=== PATIENT | male | born 1945 | race Caucasian/White ===

== ENCOUNTER 2017-01-25 09:32 | Inpatient (IN) | payer MEDICARE, OTHER ==
[2017-01-22 12:39] LABS: WBC (NOT ORDERED) (RFLEX) 0 (0-5)
[2017-01-22 13:19] LABS: BASOPHILS 0.2 %; BASOPHILS ABSOLUTE 0.02 10/3/uL (0.0-0.16); EOSINOPHILS 1.1 %; HEMATOCRIT 45.2 % (40.0-51.0); HEMOGLOBIN 14.7 g/dL (13.6-17.8); IMMATURE GRANULOCYTES 0.2 %; IMMATURE GRANULOCYTES ABSOLUTE 0.02 10/3/uL (0.0-0.11); LYMPHOCYTES 16.2 %; LYMPHOCYTES ABSOLUTE 1.41 10/3/uL (0.67-4.30); MEAN CORPUS HGB CONC 32.5 g/dL (32.0-36.0); MEAN CORPUSCULAR HEMOGLOB 28.5 pg (26.0-34.0); MEAN PLATELET VOLUME 10.6 fL (9.2-13.0); MONOCYTES 8.4 %; MONOCYTES ABSOLUTE 0.73 10/3/uL (0.21-1.20); NEUTROPHILS 73.9 %; NEUTROPHILS ABSOLUTE 6.44 10/3/uL (2.02-8.40); PLATELET COUNT 282 10/3/uL (150-400); RBC DISTRIBUTION WIDTH 13.7 % (12.0-16.0); RED CELL COUNT 5.15 10/6/uL (4.7-6.1); WHITE BLOOD CELLS 8.7 10/3/uL (4.5-10.5)
[2017-01-22 13:20] LABS: MANUAL DIFF NO %; MEAN CORPUSCULAR VOLUME 87.8 fL (80-100)
[2017-01-22 13:33] LABS: BUN (BLOOD UREA NITROGEN) 13 MG/DL (6-23); CALCIUM, SERUM 8.9 MG/DL (8.5-10.4); CHLORIDE, SERUM 101 MMOL/L (96-112); CO2 (CARBON DIOXIDE) 29 MMOL/L (24-34); CREATININE 1.15 MG/DL (0.70-1.30); GFR AFRICAN AMERICAN 74 ML/MIN (>=60); GFR NON AFRICAN AMERICAN 64 ML/MIN (>=60); GLUCOSE, SERUM 171 MG/DL (60-99); POTASSIUM, SERUM 4.7 MMOL/L (3.5-5.3); SODIUM, SERUM 140 MMOL/L (135-148)
[2017-01-22 13:44] LABS: PFA (COL/EPI) 129 SEC (72-180)
[2017-01-22 13:54] LABS: PARTIAL THROMBO TIME 31.8 SEC (22.5-37.2)
[2017-01-22 14:35] LABS: ASCORBIC ACID (UR NOT ORDER) NEG (NEG); BILIRUBIN, URINE NEGATIVE (NEG); KETONE, URINE NEGATIVE (NEG); LEUKOCYTE ESTERASE(NOT OR NEG (NEG)
--- NOTE | ~2017-01-25 | DS ---
Discharge Summary [facility] [address] [facility] [place]. [address] NAME: MARY JO CALDERON : 45 STATUS : DIS IN PAT#: [id number] AGE: 71 ADM/REG DATE : 01/25/17 MR#: [id number] REPORT SERV DATE: 02/03/17 DICTATED BY: NEIL LEVINE DATE: 02/02/17 REPORT STATUS : Draft TRANSCRIBED BY: LYUDMILA DATE: 02/02/17 Data Collection from hospitalization DISCHARGE DIAGNOSES: 1. Thrombosed left femoral popliteal bypass. 2. Peripheral vascular disease. 3. History of coronary artery disease. 4. 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 CONSULTATIONS: None. PROCEDURES PERFORMED: Revision of left femoral popliteal bypass to left femoral to posterior tibial artery bypass with composite segment from the knee distal reversed left distal greater saphenous vein to posterior tibial artery, 01/25/2017. MEDICATIONS: Coreg 3.125 mg twice daily, Valium 5 mg daily, Imdur 30 mg every morning, Nitrostat 0.4 mg sublingually as needed, Wautoma 10/325 one every 4 hours as needed, Fioricet 1 every 8 hours as needed, and Eliquis 5 mg twice daily. CONDITION AT DISCHARGE: Upon discharge, he did appear to be doing well and had no complaints. DISPOSITION: He had been discharged home to continue a 4-g sodium, low cholesterol, cardiac diet with activity as tolerated. He was to follow up with me in the office in 2 to 4 weeks. HOSPITAL COURSE: This 71-year-old male presented with short distance claudication symptoms and symptoms of rest pain in the ball of the foot and toes that had been persistent for the last few months. Recommendations were made for revision of bypass to the tibial level. The risks and benefits of this were discussed with the patient and he was agreeable to proceed. He was admitted for this and further treatment. Upon admission to the hospital, he had been taken to the operating room where he did undergo the above procedure. He did tolerate this well and was transferred to the recovery room. On postop day #1, he did appear to be doing well and had no complaints. He did have good pain control. On postop day #2, he did state that he was ready to go home, but did agree to transfer to the floor for physical therapy. He had been evaluated by Physical Therapy. On postop day #3, he was afebrile and his vital signs were stable. He did remain in stable condition and was then discharged with the above instructions. Information collected by: Missael Yancey. I submit the above information as my discharge summary. DAVONTE/LYUDMILA Neil Levine M.D. / [id number] Discharge Summary [address] [address] NAME: MARY JO CALDERON : 45 STATUS : DIS IN PAT#: [id number] AGE: 71 ADM/REG DATE : 01/25/17 MR#: [id number] REPORT SERV DATE: 02/03/17 DICTATED BY: NEIL LEVINE DATE: 02/02/17 REPORT STATUS : Draft TRANSCRIBED BY: LYUDMILA DATE: 02/02/17 CC: Luke Zhou M.D.
--- NOTE | ~2017-01-25 | OP ---
Record Of Operation [facility] [address] [place]. [address] NAME: MARY JO CALDERON : 45 STATUS : DIS IN PAT#: [id number] AGE: 71 ADM/REG DATE : 01/25/17 MR#: [id number] REPORT SERV DATE: 02/01/17 DICTATED BY: NEIL LEVINE DATE: 02/01/17 REPORT STATUS : Draft TRANSCRIBED BY: MODL DATE: 02/01/17 DATE OF PROCEDURE: 01/25/2017 PREPROCEDURE DIAGNOSIS: Critical limb insufficiency left lower extremity with rest pain. POSTOPERATIVE DIAGNOSIS: Thrombosed left femoral popliteal bypass. PROCEDURE PERFORMED: Revision of left femoral popliteal bypass to a left femoral to posterior tibial artery bypass with composite segment, from the knee distal reversed left distal greater saphenous vein to posterior tibial artery. SURGEON: Neil Levine M.D. ANESTHESIA: General. COMPLICATIONS: None. INDICATION FOR PROCEDURE: Secondary to this pleasant, 71-year-old gentleman presenting with short-distance claudication symptoms and symptoms of rest pain in the ball of the foot and toes that has been persistent for the last few months. Recommendations were made for revision of bypass to the tibial level. Risks and benefits were discussed. Consent was obtained. DETAILS OF PROCEDURE: The patient was brought to the endovascular operating room, placed in supine position, prepped and draped in routine sterile fashion into the bilateral groin regions and the entire left lower extremity. The incision was made at the popliteal level. Dissection proceeded down to the graft and was followed all the way to the popliteal artery. Dissection in the popliteal artery to the tibials was then performed to define a distal target. This was not able to be found at this level. Next dissection was proceeded to the ankle and the posterior tibial artery was noted to be compressible and healthy and the saphenous vein in the lower leg was noted to be patent from present. This was then dissected free using skip-incision technique and then the vein was taken out and all branches were repaired and then a bypass was created with this. The graft was then transected at the popliteal level. Thrombectomy was then performed removing all clot and debris. Angiogram was then performed defining the inflow to be widely patent and then an end-to-side anastomosis was then performed with the graft and the reverse left leg lower greater saphenous vein. Excellent flow was seen through this bypass and the bypass was then passed through a tunnel to the posterior tibial artery. End-to-side anastomosis was then performed with 6-0 Prolene on a BV needle running continuous stitch. Flow was re- established through the posterior tibial level. Excellent flow by Doppler assessment and angiogram. Deep layers were then closed with Vicryl, Monocryl for the skin, and Dermabond for the incisions. The patient tolerated the procedure well. CL/MODL Record Of Operation [address] [address] NAME: MARY JO CALDERON : 45 STATUS : DIS IN PAT#: [id number] AGE: 71 ADM/REG DATE : 01/25/17 MR#: [id number] REPORT SERV DATE: 02/01/17 DICTATED BY: NEIL LEVINE DATE: 02/01/17 REPORT STATUS : Draft TRANSCRIBED BY: MODMarline DATE: 02/01/17 Neil Levine M.D. / [id number] CC: Luke Zhou M.D.
[~2017-01-25 09:32] MED LIST: ACTOS30 PO; BEN25 PO; BRILINTA90 MG; BRILINTA90 MG PO; CAYENNE PO; COREG12 PO; COREG3 PO; ELIQUIS 5 MG TAB5 MG PO; FIORICET 50-301 EACH PO; FIORINALC PO; IMDUR30 PO; JANUVIA100 MG PO; KLOR-CON M2020 MEQ PO; L20 PO; L40 PO; LIPITOR20 PO; LIPITOR40 PO; LORTAB 5 PO; LORTAB PO; LORTAB10 PO; NEUR100 PO; NITROSTAT0.4 MG SL; NORCO1 TA1 PO; NORV25 PO; OXYCON10 PO; P20 PO; PCET PO; PLAVIX PO; PLAVIX300 MG PO; PRADAXA PO; PRAVACHOL40 MG PO; PRIN2.5 PO; PRIN5 PO; RAN500 PO; SMZ; V5 PO; VITAMIN D31000 UNIT PO; VITC500 PO; ZETIA PO; [UNRECOGNIZED DRUG - MIXTURE] PO; [UNRECOGNIZED DRUG - OTHER] PO
[2017-01-25 16:29] LABS: BASOPHILS 0.2 %; BASOPHILS ABSOLUTE 0.02 10/3/uL (0.0-0.16); EOSINOPHILS 0.5 %; EOSINOPHILS ABSOLUTE 0.05 10/3/uL (0.0-0.53); HEMATOCRIT 38.6 % (40.0-51.0); HEMOGLOBIN 12.5 g/dL (13.6-17.8); IMMATURE GRANULOCYTES 0.2 %; IMMATURE GRANULOCYTES ABSOLUTE 0.02 10/3/uL (0.0-0.11); LYMPHOCYTES 11.3 %; LYMPHOCYTES ABSOLUTE 1.12 10/3/uL (0.67-4.30); MANUAL DIFF NO %; MEAN CORPUS HGB CONC 32.4 g/dL (32.0-36.0); MEAN CORPUSCULAR HEMOGLOB 28.2 pg (26.0-34.0); MEAN CORPUSCULAR VOLUME 86.9 fL (80-100); MEAN PLATELET VOLUME 10.2 fL (9.2-13.0); MONOCYTES 1.6 %; MONOCYTES ABSOLUTE 0.16 10/3/uL (0.21-1.20); NEUTROPHILS 86.2 %; NEUTROPHILS ABSOLUTE 8.55 10/3/uL (2.02-8.40); PLATELET COUNT 252 10/3/uL (150-400); RBC DISTRIBUTION WIDTH 13.8 % (12.0-16.0); RED CELL COUNT 4.44 10/6/uL (4.7-6.1); WHITE BLOOD CELLS 9.9 10/3/uL (4.5-10.5)
[2017-01-25 16:44] LABS: A/G RATIO 1.1 (0.7-1.9); ALBUMIN 3.5 G/DL (3.5-5.0); CALCIUM, SERUM 8.2 MG/DL (8.5-10.4); CHLORIDE, SERUM 107 MMOL/L (96-112); CO2 (CARBON DIOXIDE) 26 MMOL/L (24-34); CREATININE 1.04 MG/DL (0.70-1.30); GFR AFRICAN AMERICAN 83 ML/MIN (>=60); GFR NON AFRICAN AMERICAN 72 ML/MIN (>=60); GLOBULIN 3.3 G/DL (2.5-4.1); GLUCOSE, SERUM 175 MG/DL (60-99); POTASSIUM, SERUM 4.3 MMOL/L (3.5-5.3); SGOT(AST) 16 U/L (5-40); SGPT(ALT) 19 U/L (5-65); SODIUM, SERUM 141 MMOL/L (135-148); TOTAL BILIRUBIN 0.3 MG/DL (0-1.2); TOTAL PROTEIN 6.8 G/DL (6.0-8.5)
[2017-01-25 16:45] LABS: ALKALINE PHOSPHATASE 71 U/L (45-117); BUN (BLOOD UREA NITROGEN) 8 MG/DL (6-23)
[2017-01-25 19:22] LABS: BASOPHILS 0.1 %; BASOPHILS ABSOLUTE 0.01 10/3/uL (0.0-0.16); EOSINOPHILS 0 %; HEMATOCRIT 36.8 % (40.0-51.0); HEMOGLOBIN 12.5 g/dL (13.6-17.8); IMMATURE GRANULOCYTES 0.1 %; IMMATURE GRANULOCYTES ABSOLUTE 0.01 10/3/uL (0.0-0.11); LYMPHOCYTES 5.8 %; LYMPHOCYTES ABSOLUTE 0.64 10/3/uL (0.67-4.30); MANUAL DIFF NO %; MEAN CORPUSCULAR HEMOGLOB 29.5 pg (26.0-34.0); MEAN CORPUSCULAR VOLUME 86.8 fL (80-100); MONOCYTES 1.3 %; MONOCYTES ABSOLUTE 0.14 10/3/uL (0.21-1.20); NEUTROPHILS 92.7 %; NEUTROPHILS ABSOLUTE 10.22 10/3/uL (2.02-8.40); PLATELET COUNT 232 10/3/uL (150-400); RBC DISTRIBUTION WIDTH 13.9 % (12.0-16.0); RED CELL COUNT 4.24 10/6/uL (4.7-6.1)
[2017-01-25 19:38] LABS: A/G RATIO 0.9 (0.7-1.9); ALBUMIN 3.3 G/DL (3.5-5.0); ALKALINE PHOSPHATASE 72 U/L (45-117); BUN (BLOOD UREA NITROGEN) 10 MG/DL (6-23); CALCIUM, SERUM 8.2 MG/DL (8.5-10.4); CHLORIDE, SERUM 105 MMOL/L (96-112); CO2 (CARBON DIOXIDE) 25 MMOL/L (24-34); CREATININE 1.08 MG/DL (0.70-1.30); GFR AFRICAN AMERICAN 80 ML/MIN (>=60); GFR NON AFRICAN AMERICAN 69 ML/MIN (>=60); GLOBULIN 3.5 G/DL (2.5-4.1); GLUCOSE, SERUM 187 MG/DL (60-99); SGOT(AST) 16 U/L (5-40); SGPT(ALT) 22 U/L (5-65); SODIUM, SERUM 141 MMOL/L (135-148); TOTAL BILIRUBIN 0.4 MG/DL (0-1.2); TOTAL PROTEIN 6.8 G/DL (6.0-8.5)
[2017-01-26 03:23] LABS: BASOPHILS 0 %; EOSINOPHILS 0 %; HEMATOCRIT 34.5 % (40.0-51.0); HEMOGLOBIN 11.5 g/dL (13.6-17.8); IMMATURE GRANULOCYTES 0.2 %; IMMATURE GRANULOCYTES ABSOLUTE 0.03 10/3/uL (0.0-0.11); LYMPHOCYTES 7.5 %; LYMPHOCYTES ABSOLUTE 1.04 10/3/uL (0.67-4.30); MEAN CORPUS HGB CONC 33.3 g/dL (32.0-36.0); MEAN CORPUSCULAR HEMOGLOB 28.8 pg (26.0-34.0); MEAN CORPUSCULAR VOLUME 86.5 fL (80-100); MONOCYTES 5.1 %; NEUTROPHILS 87.2 %; NEUTROPHILS ABSOLUTE 12.06 10/3/uL (2.02-8.40); PLATELET COUNT 221 10/3/uL (150-400); RBC DISTRIBUTION WIDTH 13.8 % (12.0-16.0); RED CELL COUNT 3.99 10/6/uL (4.7-6.1); WHITE BLOOD CELLS 13.8 10/3/uL (4.5-10.5)
[2017-01-26 03:24] LABS: MANUAL DIFF NO %
[2017-01-26 03:41] LABS: ALBUMIN 3.2 G/DL (3.5-5.0); ALKALINE PHOSPHATASE 69 U/L (45-117); BUN (BLOOD UREA NITROGEN) 10 MG/DL (6-23); CALCIUM, SERUM 7.8 MG/DL (8.5-10.4); CHLORIDE, SERUM 101 MMOL/L (96-112); CO2 (CARBON DIOXIDE) 24 MMOL/L (24-34); CREATININE 1.24 MG/DL (0.70-1.30); GFR AFRICAN AMERICAN 67 ML/MIN (>=60); GFR NON AFRICAN AMERICAN 58 ML/MIN (>=60); GLOBULIN 3.3 G/DL (2.5-4.1); GLUCOSE, SERUM 187 MG/DL (60-99); POTASSIUM, SERUM 4.3 MMOL/L (3.5-5.3); SGOT(AST) 16 U/L (5-40); SGPT(ALT) 21 U/L (5-65); SODIUM, SERUM 139 MMOL/L (135-148); TOTAL BILIRUBIN 0.4 MG/DL (0-1.2); TOTAL PROTEIN 6.5 G/DL (6.0-8.5)
== END 2017-01-28 14:04 | disposition home or self-care (01) | DRG 254 ==
LOC: SDC/OF 09:32 → PACU 15:55 → CVICU 18:45 → 2SO 01-27 14:56
PROVIDERS: Specialist
PROC: 041L09L Bypass Left Femoral Artery to Popliteal Artery with Autologous Venous Tissue, Open Approach (ICD-10-PCS; principal; 2017-01-25 12:30)
PROC: 06BQ0ZZ Excision of Left Saphenous Vein, Open Approach (ICD-10-PCS; 2017-01-25 12:30)
DX: T82.868A Thrombosis due to vascular prosthetic devices, implants and grafts, initial encounter (principal); I25.118 Atherosclerotic heart disease of native coronary artery with other forms of angina pectoris; I70.212 Atherosclerosis of native arteries of extremities with intermittent claudication, left leg; K21.9 Gastro-esophageal reflux disease without esophagitis; Z95.1 Presence of aortocoronary bypass graft; Z95.5 Presence of coronary angioplasty implant and graft; Z86.73 Personal history of transient ischemic attack (TIA), and cerebral infarction without residual deficits
CPT/HCPCS: 35876; 71020; 78452; 80048; 80053; 81001; 83735; 85025; 85576; 85610; 85730; 87641; 93005; 93017; 97161-GP; A9270-GY; A9502; C1757; C1769; C1894; G8978-CJ-GP; G8979-CH-GP; J0690; J1580; J2250; J2270; J2370; J2405; J2785; J3010; J3370; Q9966

== ENCOUNTER 2017-03-08 15:42 | Emergency (ER) | payer MEDICARE, OTHER ==
[2017-03-08 16:22] LABS: BASOPHILS 0.5 %; BASOPHILS ABSOLUTE 0.03 10/3/uL (0.0-0.16); EOSINOPHILS 4.1 %; EOSINOPHILS ABSOLUTE 0.27 10/3/uL (0.0-0.53); ER CBC TAT 0 Hrs 11 Mins; HEMATOCRIT 41.1 % (40.0-51.0); HEMOGLOBIN 13.4 g/dL (13.6-17.8); IMMATURE GRANULOCYTES 0.2 %; IMMATURE GRANULOCYTES ABSOLUTE 0.01 10/3/uL (0.0-0.11); LYMPHOCYTES 27.4 %; MEAN CORPUS HGB CONC 32.6 g/dL (32.0-36.0); MEAN CORPUSCULAR HEMOGLOB 27.7 pg (26.0-34.0); MEAN CORPUSCULAR VOLUME 84.9 fL (80-100); MEAN PLATELET VOLUME 10.6 fL (9.2-13.0); MONOCYTES 12.8 %; MONOCYTES ABSOLUTE 0.84 10/3/uL (0.21-1.20); NEUTROPHILS ABSOLUTE 3.61 10/3/uL (2.02-8.40); PLATELET COUNT 279 10/3/uL (150-400); RBC DISTRIBUTION WIDTH 13.6 % (12.0-16.0); RED CELL COUNT 4.84 10/6/uL (4.7-6.1); WHITE BLOOD CELLS 6.6 10/3/uL (4.5-10.5)
[2017-03-08 16:23] LABS: MANUAL DIFF NO %
[2017-03-08 16:36] LABS: BUN (BLOOD UREA NITROGEN) 13 MG/DL (6-23); CHEST PAIN PROFILE TAT 0 Hrs 25 Mins; CHLORIDE, SERUM 105 MMOL/L (96-112); CREATININE 1.14 MG/DL (0.70-1.30); GFR AFRICAN AMERICAN 75 ML/MIN (>=60); GFR NON AFRICAN AMERICAN 64 ML/MIN (>=60); POTASSIUM, SERUM 4.8 MMOL/L (3.5-5.3); SODIUM, SERUM 137 MMOL/L (135-148); TROPONIN I <0.02 NG/ML (<0.05)
[2017-03-08 16:37] LABS: CALCIUM, SERUM 9.1 MG/DL (8.5-10.4); CO2 (CARBON DIOXIDE) 29 MMOL/L (24-34); GLUCOSE, SERUM 134 MG/DL (60-99)
[2017-03-08 16:40] LABS: INTERNATIONAL NORMAL RATI 1.2 UNITS (-); PARTIAL THROMBO TIME 31.9 SEC (22.5-37.2)
[2017-03-08 16:42] LABS: PROTIME (NOT ORD) 15.2 SEC (12.0-14.5)
== END 2017-03-08 19:20 | disposition left against medical advice (07) ==
LOC: ER 15:42
PROVIDERS: Hospitalist
DX: Z53.21 Procedure and treatment not carried out due to patient leaving prior to being seen by health care provider (principal)
CPT/HCPCS: 71020; 80048; 83735; 84484; 85025; 85610; 85730; 93005

== ENCOUNTER 2017-03-12 12:51 | Inpatient (IN) | payer MEDICARE, OTHER ==
--- NOTE | ~2017-03-12 | OP ---
Record Of Operation [facility] [address] [place]. [address] NAME: NICKO CALDERON : 45 STATUS : ADM IN [facility]#: [id number] AGE: 71 ADM/REG DATE : 03/12/17 MR#: [id number] REPORT SERV DATE: 03/13/17 DICTATED BY: DATE: REPORT STATUS : Draft TRANSCRIBED BY: MODL DATE: 03/12/17 DATE OF PROCEDURE: 03/12/2017 PREOPERATIVE DIAGNOSES: 1. Thrombosed left femoral posterior tibial artery bypass. 2. Left lower extremity critical limb ischemia. 3. Peripheral vascular disease. POSTOPERATIVE DIAGNOSES: 1. Thrombosed left femoral posterior tibial artery bypass. 2. Left lower extremity critical limb ischemia. 3. Peripheral vascular disease. PROCEDURE: 1. Open thrombectomy and left fem PT composite bypass. 2. Left lower extremity angiogram. 3. Stent placement, proximal left fem tibial bypass graft with a 6 x 5 cm Viabahn. 4. Balloon angioplasty, 6 x 6 cm of the proximal fem tibial bypass graft. ATTENDING SURGEON: Priyanka Elkins MD. EDUCATIONAL PROGRAM ASSISTANT: Deacon. ANESTHESIA: General. IV FLUIDS: 600 mL crystalloid. ESTIMATED BLOOD LOSS: 50 mL. CONTRAST: 29 mL. COMPLICATION: None apparent. BRIEF HISTORY: Nicko Calderon is a 71-year-old gentleman with a longstanding history of peripheral vascular disease having undergone multiple lower extremity bypasses and revisions with thrombectomy. Most recently, he underwent revision of the left lower extremity bypass with composite vein down to his PT at the ankle by Dr. Levine on 01/25/2017. He did not maintain his anticoagulation and this promptly thrombosed after leaving the hospital. He was brought in today to attempt salvage of his lower extremity bypass graft. Risks and benefits were explained to the patient including but not limited to bleeding, infection, damage to nerves, failure, and anesthesia. He agreed and requested the procedure. DESCRIPTION OF PROCEDURE: The patient was brought to the operative room, placed in the supine position on the operating room table. General endotracheal anesthesia was introduced, and his left lower extremity was prepped circumferentially and draped sterilely. Time-out was performed to identify correct patient, procedure, position, and location. The Record Of Operation [facility] [address] [place]. [address] NAME: NICKO CALDERON : 45 STATUS : ADM IN PAT#: [id number] AGE: 71 ADM/REG DATE : 03/12/17 MR#: [id number] REPORT SERV DATE: 03/13/17 DICTATED BY: DATE: REPORT STATUS : Draft TRANSCRIBED BY: MODL DATE: 03/12/17 patient did receive preoperative antibiotics as well. Using ultrasound guidance, the left lower extremity bypass graft was identified in the thigh, at this point it was PTFE. There was also anastomosis between the PTFE and the vein, below the knee was also identified with ultrasound and marked. Skin incision was made in the distal thigh over the bypass graft. The incision was carried down to the subcutaneous tissues with the Bovie cautery. The bypass was identified and circumferentially controlled proximally and distally. It was opened with a #11 blade scalpel after 5000 units of heparin were given to the patient. Upon opening the bypass, there was no fresh thrombus present. There was serous fluid and some chronic clot. We attempted to pass a #5 Will proximally, but it would not traverse the proximal anastomosis. At this point in time, I placed a short 6-Dominican sheath in the bypass, and shot a retrograde angiogram which appeared to have a large amount of thrombus in the previous stent placement and the proximal anastomosis. Using a Bentson wire and a Trailblazer, this was traversed up into the external iliac artery. A #5, [id number] Will was advanced into the external iliac and slowly withdrawn through the proximal stent with retrieval of thrombus. At this point in time, we did have some inflow, but it was not pulsatile. We then proceeded to place a 6 mm x 5 cm Viabahn within the previous stent, but below the takeoff of the profunda. We then post dilated this with a 6 x 60 mm balloon. Once the stent was placed with brisk pulsatile inflow in the mid thigh, we then attempted to pass Will distally down the bypass graft, but they were not able to be passed below the mid allison. We did have some return of chronic thrombus, but no backbleeding. We then closed the PTFE bypass graft with 5-0 Prolene and then cut down on the below knee bypass that had been previously marked out at the anastomosis. We identified the bypass graft and anastomosis between the PTFE and the vein. This was encircled circumferentially and control was obtained proximally and distally. We then opened the vein bypass just past the anastomosis. At this level, we did have pulsatile bleeding as inflow and we passed #2 and #3 Will distally down to the bypass; however, we were unable to traverse the distal anastomosis. At this point in time, we placed the short 6-Dominican sheath into the distal bypass, shot an angiogram and appeared to be some thrombus at the anastomosis. We were able to pass a floppy 0.014 wire down into the PT, pass the anastomosis over which a #3 Will was placed and withdrawn slowly through anastomosis with return of some fresh thrombus as well as backbleeding. However, there was still what appeared to be, on angiogram, a stenosis of the anastomosis. We were unable to pass the balloon past this, and due to this, we elected to close the venotomy at the below knee area and then open a previous ankle incision over the PT anastomosis. We opened the incision and were able to identify the distal anastomosis, gained control of the bypass as well as the distal PT. We opened the donahue of the vein bypass with retrieval of some thrombus, and we were able to pass serial coronary dilators down through the distal PT up to a #3, which passed easily. We had brisk back-bleeding from the PT as well as the brisk inflow. At this point in time, we felt confident that there was no inflow or outflow obstruction, so we closed the donahue of the vein, bypass with 6-0 Prolene. Once this was done, we had a biphasic signal in the PT and the bypass. We then irrigated all the wounds and closed them in layers of Vicryl, closed the ankle incision with nylon for the skin and the below knee and above knee incisions were closed with 4-0 Monocryl for the skin. Sterile dressings were placed, and the patient was taken to the recovery room in stable condition and tolerated the procedure well and no apparent complications. Record Of Operation [facility] [address] [facility] [place]. [address] NAME: NICKO CALDERON : 45 STATUS : ADM IN [facility]#: [id number] AGE: 71 ADM/REG DATE : 03/12/17 MR#: [id number] REPORT SERV DATE: 03/13/17 DICTATED BY: DATE: REPORT STATUS : Draft TRANSCRIBED BY: LYUDMILA DATE: 03/12/17 [facility]/MODL Priyanka Elkins MD / [id number] CC: Priyanka Elkins MD
--- NOTE | ~2017-03-12 | HP ---
History And Physical [address] [address] NAME: MARY JO CALDERON : 45 STATUS : DIS IN PAT#: [id number] AGE: 72 ADM/REG DATE : 03/12/17 MR#: [id number] REPORT SERV DATE: 06/04/17 DICTATED BY: NEIL LEVINE DATE: 06/04/17 REPORT STATUS : Draft TRANSCRIBED BY: MODL DATE: 06/04/17 DATE OF ADMISSION: 03/12/2017 HISTORY OF PRESENT ILLNESS: Mr. Calderon is a pleasant 72-year-old, patient of Dr. Neil Levine, who has been followed for critical limb ischemia of his lower extremities. He is status post revision of his left fem-pop bypass to the left femoral to posterior tibial bypass with composite left greater saphenous vein in distal-posterior tibial region. PHYSICAL EXAMINATION: GENERAL: The patient is awake, alert, oriented, neurologically intact, in no acute distress. HEAD: Normocephalic. NECK: Supple. No jugular JVD. HEART: Regular rate and rhythm. LUNGS: Clear. ABDOMEN: Moderately obese, nontender. EXTREMITIES: Lower extremities are cool and a nonpalpable pulse. No ulceration or gangrene noted. PLAN: Plan is to attempt to salvage the critical limb of the left leg bypass and fem-tib. He is to be compliant with his anticoagulation. Recommendations are we will re-attempt another thrombectomy for him. This will be the last attempt with salvaging the limb. DICTATED BY: JESSICA Boles/LYUDMILA Neil Levine M.D. / [id number] CC: MD Johnny Boogie M.D.
--- NOTE | ~2017-03-12 | DS ---
Discharge Summary [facility] [address] [place]. [address] NAME: MARY JO CALDERON : 45 STATUS : DIS IN PAT#: [id number] AGE: 72 ADM/REG DATE : 03/12/17 MR#: [id number] REPORT SERV DATE: 06/04/17 DICTATED BY: NEIL LEVINE DATE: 06/04/17 REPORT STATUS : Draft TRANSCRIBED BY: MODL DATE: 06/04/17 ADMISSION DATE: 03/12/2017 DISCHARGE DATE: 03/15/2017 He was admitted for a left thrombectomy of his fem-tib bypass. Surgery was completed. He spent a day in CVICU and then was transferred to the floor. He is able to ambulate without assistance. On physical exam, the patient is awake, alert, and oriented. Neurologically intact. Lower extremity has palpable pedal pulse. Plan is for him to follow up in the office in four to [address] Levine. The patient is to continue his anticoagulation and to call us as needed. The patient has requested to continue Coumadin and Coumadin levels should be managed by his PCP. JIMMY/LYUDMILA Savita Bruce, JESSICA Neil Levine M.D. / [id number] CC: MD Johnny Boogie M.D.
--- NOTE | ~2017-03-12 | CN ---
Consultation Report [facility] [address] [place]. [address] NAME: MARY JO CALDERON : 45 STATUS : ADM IN PAT#: [id number] AGE: 71 ADM/REG DATE : 03/12/17 MR#: [id number] REPORT SERV DATE: 03/13/17 DICTATED BY: GIACOMO PACKER DATE: 03/13/17 REPORT STATUS : Draft TRANSCRIBED BY: MODMarline DATE: 03/13/17 CARDIOLOGY CONSULTATION NOTE DATE OF CONSULTATION: 03/13/2017 IDENTIFYING DATA: The patient is a 71-year-old man with known severe coronary heart disease, status post coronary artery bypass grafting surgery in the year 2005 and subsequent stenting to a vein graft to the posterior descending artery, which is now occluded. REASON FOR CONSULTATION: Elevated cardiac biomarkers and chest pain with ECG changes suggestive of global myocardial ischemia. HISTORY OF PRESENT ILLNESS: Mr. Calderon is a 71-year-old man with a history of advanced coronary heart disease and peripheral arterial disease with multiple previous coronary and lower extremity interventions. The patient apparently has a history of poor medical compliance. He is followed by Dr. Marcos Goldman in Cardiology Clinic. The patient was last seen in Cardiology Clinic on 03/08/2017. At that time, the patient was complaining of resting left lower extremity pain. Due to concern over limb-threatening ischemia, the patient was taken to the emergency room. The patient left the emergency room against medical advice, "because I had to wait for three hours." The patient's lower extremity pain continued to worsen, and became associated with severe chest pain and shortness of breath. Due to severe limb pain and chest pain, the patient presented back to [facility] on 03/12/2017. He was found to have critical limb ischemia, and was taken for emergency thrombectomy and stenting of the left lower extremity with a covered stent. Yesterday, the patient was complaining of extreme pressure type chest pain associated with dyspnea "like my heart was going to explode." He reports that his symptoms have nearly resolved this morning. He does report a vague chest "soreness." However, he denies any dyspnea. The patient has just finished eating breakfast, and denies any nausea, diaphoresis, or other symptoms. His lower extremity pain has nearly resolved. PAST MEDICAL HISTORY: 1. Coronary artery disease, status post coronary artery bypass grafting surgery in 2005 with subsequent PCI. 2. Chronic pain syndrome. 3. Hypertension. 4. Dyslipidemia - a recent lipid profile was not available, however, I am strongly suspicious of familial hyperlipidemia. 5. Hypertension. 6. Ischemic cardiomyopathy with ejection fraction most recently estimated at 40% by transthoracic echocardiography. 7. Peripheral arterial disease. Consultation Report [facility] [id number] [place]. [address] NAME: MARY JO CALDERON : 45 STATUS : ADM IN PAT#: [id number] AGE: 71 ADM/REG DATE : 03/12/17 MR#: [id number] REPORT SERV DATE: 03/13/17 DICTATED BY: GIACOMO PACKER DATE: 03/13/17 REPORT STATUS : Draft TRANSCRIBED BY: LYUDMILA DATE: 03/13/17 8. Type 2 diabetes. PAST SURGICAL HISTORY: 1. The patient has had coronary artery bypass grafting surgery as noted above in 2005 with subsequent percutaneous coronary intervention for inferior ST-segment elevation, 06/14/2013. The patient was subsequently found to have total occlusion of all saphenous vein grafts. He has a patent MIRANDA to LAD graft on his most recent cardiac catheterization in 11/2015. 2. Severe peripheral arterial disease with at least 16 procedures for lower extremity revascularization. FAMILY HISTORY: The patient reports a positive family history for early coronary heart disease: He reports that one of his brothers abruptly at age 19 from myocardial infarction. His brother apparently developed substernal chest pain which was severe before passing out at a [employer]. The patient reports that both his father and mother were diagnosed with coronary heart disease. SOCIAL HISTORY: The patient denies any significant history of smoking or tobacco use of any kind. He denies alcohol or recreational drug use. ALLERGIES: THE PATIENT HAS DOCUMENTED ALLERGIES TO OXYCODONE, ASPIRIN, GABAPENTIN, HYDROMORPHONE, AND APPARENTLY HAS BEEN UNABLE TO TOLERATE PLAVIX IN THE PAST. HOME MEDICATIONS: 1. Fioricet 1 tablet q.8 hours as needed for headache. 2. Eliquis 5 mg p.o. twice daily. 3. Valium 5 mg p.o. daily. 4. Benadryl 25 mg p.o. q.8 hours p.r.n. 5. Hydrocodone and acetaminophen 5/325 mg q.4 hours as needed for pain. 6. Isosorbide mononitrate 30 mg p.o. daily. 7. Sublingual nitroglycerin 0.4 mg daily. The patient reports that he is taking atorvastatin, but this is not listed on his record. At the time of Dr. Goldman's last note, atorvastatin is not listed as one of the patient's medications. When asked what dose he takes, the patient reports "I take 2 mg twice a day." REVIEW OF SYSTEMS: A complete 12-system review was performed. This is noncontributory except for the pertinent positives and negatives noted in the history of present illness above. PHYSICAL EXAMINATION: VITAL SIGNS: Temperature is 97.7 degrees Fahrenheit, blood pressure is 107/51 mmHg, oxygen saturation is 95% on 2 L nasal cannula, heart rate is 73 beats per minute and regular, and respiratory rate is 16. CONSTITUTIONAL: The patient is an older white man, who is in no acute distress. EYES: PERRL, EOMI, clear conjunctiva. Consultation Report [address] [place]. [address] NAME: MARY JO CALDERON : 45 STATUS : ADM IN [facility]#: [id number] AGE: 71 ADM/REG DATE : 03/12/17 MR#: [id number] REPORT SERV DATE: 03/13/17 DICTATED BY: GIACOMO PACKER DATE: 03/13/17 REPORT STATUS : Draft TRANSCRIBED BY: LYUDMILA DATE: 03/13/17 HEAD/MNT: NCAT with moist mucous membranes and grossly normal hard and soft palate. NECK: Supple with no obvious thyromegaly or lymphadenopathy CARDIOVASCULAR: There is a regular rhythm with a normal S1, and an exaggerated split of the second heart sound. The jugular venous pressure appears normal. There is an early peaking 1/6 systolic murmur consistent with mild aortic sclerosis versus benign flow murmur. The remainder of the cardiac examination is unremarkable. PULMONARY: Clear to auscultation bilaterally, no wheezing, rales or rhonchi noted. No dullness to percussion. Non-labored. ABDOMINAL: Soft, non-tender, non-distended with no hepatosplenomegaly noted. EXTREMITIES: There is no evidence of tenderness and dullness. Surgical dressing in place over the left lower extremity is clean, dry, and intact. Both lower extremities appear warm and well perfused at this time. There is no loss of motor function or neurologic function. MUSCULOSKELETAL: Grossly normal strength and range of motion in all extremities INTEGUMENTARY: Skin appears intact with no bruises, wounds or active lesions noted NEURO/PSYC: Alert and oriented x3, with no dysarthria, facial droop or lateralizing weakness noted. LABORATORY DATA: Cell count show a white blood cell count of 9.2, hemoglobin 12, hematocrit 37, platelets 250. Electrolyte profile shows sodium of 142, potassium 4.5, chloride is 107, CO2 of 23, BUN 7, creatinine is 1.32, glucose is 207. Troponin I is 0.46. Total CK is 77 and CK-MB is 5.0. DIAGNOSTIC STUDIES: 12-lead EKG: The patient's 12-lead EKG performed yesterday, 03/12/2017, shows sinus tachycardia with a right bundle-branch block pattern. There is T-wave inversion and 2-[address]-segment depression seen throughout the precordial leads. 0.5 to [address]-segment elevation cannot be excluded, and there is [address]-segment depression in leads 1 and aVL. In comparison to a previous tracing dated 03/08/2017, there is some ST- segment depression noted on the patient's previous EKG, but this is at most 1 mm. The findings overall are concerning for global myocardial ischemia. Criteria present for previous inferoposterior myocardial infarction. ASSESSMENT AND PLAN: 1. Dbu-QO-tblrgor elevation myocardial infarction: This is demand ischemia/WHO type 2 myocardial infarction, likely related to tachycardia and possibly pain/hypertension related to the patient's acute lower extremity limb-threatening ischemia. The patient's symptoms have mostly resolved at this time. I have reviewed the patient's cardiac catheterization films. In 11/2015, the patient had a widely patent MIRANDA to LAD graft. However, the [place] LAD is diffusely diseased. All of the patient's saphenous vein grafts are occluded, and the patient has unrevascularized left circumflex and RCA distribution. There are extensive collaterals arising from the proximal right coronary artery. However, there are no appropriate targets for percutaneous coronary intervention at that time. I feel it is very unlikely that the patient would benefit from an invasive cardiac workup at this time. If his symptoms can be managed medically, I would recommend this. Similarly, the patient is a poor candidate for redo bypass surgery as he does have a patent MIRANDA graft, and has poor targets for surgical Consultation Report [facility] [id number] [place]. [address] NAME: MARY JO CALDERON : 45 STATUS : ADM IN [facility]#: [id number] AGE: 71 ADM/REG DATE : 03/12/17 MR#: [id number] REPORT SERV DATE: 03/13/17 DICTATED BY: GIACOMO PACKER DATE: 03/13/17 REPORT STATUS : Draft TRANSCRIBED BY: LYUDMILA DATE: 03/13/17 revascularization as well as an inferior myocardial infarction. 2. Ischemic cardiomyopathy/heart failure with reduced ejection fraction: The patient appears euvolemic at this time. A repeat chest x-ray will be obtained. 3. Suspected familial hyperlipidemia: If the patient has a total cholesterol greater than 290, then he would meet criteria for familial hypercholesterolemia based on Shelton Rohit criteria. The patient is not presently on a statin drug. He denies any previous stent myalgias. He will be restarted on atorvastatin 40 mg p.o. q.h.s. I would recommend this be increased to the maximum tolerated dose. Should the diagnosis of familial hypercholesterolemia be confirmed, consider a PCSK9 inhibitor. I will obtain a fasting lipid profile tomorrow morning. 4. Arterial thrombosis: The patient has been started on Coumadin anticoagulation. He apparently has a history of poor medical compliance, and apparently is unwilling to pay for a novel oral anticoagulant for reasons of cost. I will discuss low-dose aspirin with the patient tomorrow. Given the patient's history of advanced coronary artery disease, I feel he would benefit from some type of anti-platelet agent. Thank you for allowing me to participate in the care of Mr. Calderon. The Cardiology Service will continue to follow the patient closely during this hospitalization. KHADRA/LYUDMILA Giacomo Packer MD / [id number] CC: DOMINIC CHAMPAGNE
[2017-03-12 14:58] LABS: WBC (NOT ORDERED) (RFLEX) 0 (0-5)
[2017-03-12 15:16] LABS: ASCORBIC ACID (UR NOT ORDER) NEG (NEG); BILIRUBIN, URINE NEGATIVE (NEG); KETONE, URINE NEGATIVE (NEG); LEUKOCYTE ESTERASE(NOT OR NEG (NEG)
[2017-03-12 20:41] LABS: BASOPHILS 0.1 %; BASOPHILS ABSOLUTE 0.01 10/3/uL (0.0-0.16); EOSINOPHILS 0.6 %; EOSINOPHILS ABSOLUTE 0.06 10/3/uL (0.0-0.53); HEMATOCRIT 39.2 % (40.0-51.0); HEMOGLOBIN 12.7 g/dL (13.6-17.8); IMMATURE GRANULOCYTES 0.2 %; IMMATURE GRANULOCYTES ABSOLUTE 0.02 10/3/uL (0.0-0.11); LYMPHOCYTES 11.7 %; LYMPHOCYTES ABSOLUTE 1.17 10/3/uL (0.67-4.30); MEAN CORPUS HGB CONC 32.4 g/dL (32.0-36.0); MEAN CORPUSCULAR HEMOGLOB 27.5 pg (26.0-34.0); MEAN PLATELET VOLUME 10.3 fL (9.2-13.0); MONOCYTES 1.8 %; MONOCYTES ABSOLUTE 0.18 10/3/uL (0.21-1.20); NEUTROPHILS 85.6 %; NEUTROPHILS ABSOLUTE 8.53 10/3/uL (2.02-8.40); PLATELET COUNT 252 10/3/uL (150-400); RBC DISTRIBUTION WIDTH 13.9 % (12.0-16.0); RED CELL COUNT 4.61 10/6/uL (4.7-6.1)
[2017-03-12 20:45] LABS: MANUAL DIFF NO %
[2017-03-12 20:51] LABS: BUN (BLOOD UREA NITROGEN) 7 MG/DL (6-23); CALCIUM, SERUM 8.9 MG/DL (8.5-10.4); CHLORIDE, SERUM 107 MMOL/L (96-112); CO2 (CARBON DIOXIDE) 27 MMOL/L (24-34); CREATININE 1.23 MG/DL (0.70-1.30); GFR AFRICAN AMERICAN 68 ML/MIN (>=60); GFR NON AFRICAN AMERICAN 59 ML/MIN (>=60); GLUCOSE, SERUM 178 MG/DL (60-99); POTASSIUM, SERUM 3.4 MMOL/L (3.5-5.3); SODIUM, SERUM 142 MMOL/L (135-148)
[2017-03-12 21:28] LABS: TROPONIN I <0.02 NG/ML (<0.05)
[2017-03-12 21:29] LABS: CK-MB 0.8 NG/ML; CPK 54 U/L (0-200)
[2017-03-13 03:48] LABS: BASOPHILS 0.1 %; BASOPHILS ABSOLUTE 0.01 10/3/uL (0.0-0.16); EOSINOPHILS 0 %; HEMATOCRIT 36.7 % (40.0-51.0); HEMOGLOBIN 11.9 g/dL (13.6-17.8); IMMATURE GRANULOCYTES 0.1 %; IMMATURE GRANULOCYTES ABSOLUTE 0.01 10/3/uL (0.0-0.11); LYMPHOCYTES 6.7 %; LYMPHOCYTES ABSOLUTE 0.62 10/3/uL (0.67-4.30); MEAN CORPUS HGB CONC 32.4 g/dL (32.0-36.0); MEAN CORPUSCULAR HEMOGLOB 27.7 pg (26.0-34.0); MEAN CORPUSCULAR VOLUME 85.5 fL (80-100); MEAN PLATELET VOLUME 10.4 fL (9.2-13.0); MONOCYTES 1.5 %; MONOCYTES ABSOLUTE 0.14 10/3/uL (0.21-1.20); NEUTROPHILS 91.6 %; NEUTROPHILS ABSOLUTE 8.46 10/3/uL (2.02-8.40); PLATELET COUNT 250 10/3/uL (150-400); RED CELL COUNT 4.29 10/6/uL (4.7-6.1); WHITE BLOOD CELLS 9.2 10/3/uL (4.5-10.5)
[2017-03-13 03:49] LABS: MANUAL DIFF NO %
[2017-03-13 04:07] LABS: BUN (BLOOD UREA NITROGEN) 7 MG/DL (6-23); CALCIUM, SERUM 8.5 MG/DL (8.5-10.4); CHLORIDE, SERUM 107 MMOL/L (96-112); CO2 (CARBON DIOXIDE) 23 MMOL/L (24-34); CREATININE 1.32 MG/DL (0.70-1.30); GFR AFRICAN AMERICAN 62 ML/MIN (>=60); GFR NON AFRICAN AMERICAN 54 ML/MIN (>=60); GLUCOSE, SERUM 207 MG/DL (60-99); SODIUM, SERUM 142 MMOL/L (135-148)
[2017-03-13 04:14] LABS: CPK 77 U/L (0-200); POTASSIUM, SERUM 4.5 MMOL/L (3.5-5.3)
[2017-03-13 04:15] LABS: TROPONIN I 0.46 NG/ML (<0.05)
[2017-03-13 11:47] LABS: INTERNATIONAL NORMAL RATI 1.2 UNITS (-); PROTIME (NOT ORD) 14.8 SEC (12.0-14.5)
[2017-03-13 15:44] LABS: CK-MB 7.5 NG/ML
[2017-03-13 15:46] LABS: CKMB INDEX (NOT ORD) 9.7; TROPONIN I 0.56 NG/ML (<0.05)
[2017-03-13] MEDS ORDERED: ELIQUIS 2.5 MG2.5 MG PO (17:46)
[2017-03-13] MEDS ORDERED: FIORICET 50-301 EACH PO (17:46)
[2017-03-13] MEDS ORDERED: V2 PO (17:47)
[2017-03-13] MEDS ORDERED: NORCO1 TAB PO (17:47)
[2017-03-13] MEDS ORDERED: BEN25 PO (17:47)
[2017-03-13] MEDS ORDERED: MAGOX4 PO (17:48)
[2017-03-13] MEDS ORDERED: BACTROINT TOP (17:48)
[2017-03-13] MEDS ORDERED: NITROSTAT0.4 MG SL (17:56)
[2017-03-14 07:27] LABS: BASOPHILS 0.1 %; BASOPHILS ABSOLUTE 0.01 10/3/uL (0.0-0.16); EOSINOPHILS 0.2 %; EOSINOPHILS ABSOLUTE 0.03 10/3/uL (0.0-0.53); HEMATOCRIT 37.5 % (40.0-51.0); IMMATURE GRANULOCYTES 0.3 %; IMMATURE GRANULOCYTES ABSOLUTE 0.04 10/3/uL (0.0-0.11); LYMPHOCYTES 15.2 %; LYMPHOCYTES ABSOLUTE 2.09 10/3/uL (0.67-4.30); MEAN CORPUSCULAR HEMOGLOB 27.6 pg (26.0-34.0); MEAN CORPUSCULAR VOLUME 86.2 fL (80-100); MEAN PLATELET VOLUME 10.7 fL (9.2-13.0); MONOCYTES 8.4 %; MONOCYTES ABSOLUTE 1.15 10/3/uL (0.21-1.20); NEUTROPHILS 75.8 %; NEUTROPHILS ABSOLUTE 10.43 10/3/uL (2.02-8.40); PLATELET COUNT 260 10/3/uL (150-400); RBC DISTRIBUTION WIDTH 14.2 % (12.0-16.0); RED CELL COUNT 4.35 10/6/uL (4.7-6.1)
[2017-03-14 07:29] LABS: MANUAL DIFF NO %; WHITE BLOOD CELLS 13.8 10/3/uL (4.5-10.5)
[2017-03-14 07:34] LABS: INTERNATIONAL NORMAL RATI 1.2 UNITS (-); PROTIME (NOT ORD) 15.2 SEC (12.0-14.5)
[2017-03-14 07:35] LABS: PARTIAL THROMBO TIME 54.4 SEC (22.5-37.2)
[2017-03-14 07:38] LABS: CALCIUM, SERUM 9.2 MG/DL (8.5-10.4); CHLORIDE, SERUM 108 MMOL/L (96-112); CHOL/HDL RATIO(NOT ORDER) 3.6 (0-5); CHOLESTEROL 179 MG/DL (< 200); CREATININE 1.14 MG/DL (0.70-1.30); GFR AFRICAN AMERICAN 75 ML/MIN (>=60); GFR NON AFRICAN AMERICAN 64 ML/MIN (>=60); LDL CHOLESTEROL 105 MG/DL (< 130); NON-HDL CHOLESTEROL 129 MG/DL (< 160); POTASSIUM, SERUM 4.5 MMOL/L (3.5-5.3); SODIUM, SERUM 142 MMOL/L (135-148); TRIGLYCERIDE 121 MG/DL (< 150)
[2017-03-14 07:39] LABS: BUN (BLOOD UREA NITROGEN) 15 MG/DL (6-23); CO2 (CARBON DIOXIDE) 30 MMOL/L (24-34); GLUCOSE, SERUM 138 MG/DL (60-99); HDL CHOLESTEROL 50 MG/DL (> 39)
[2017-03-15 06:10] LABS: INTERNATIONAL NORMAL RATI 2.7 UNITS (-)
[2017-03-15 06:17] LABS: PROTIME (NOT ORD) 28.3 SEC (12.0-14.5)
[2017-03-15 12:06] LABS: PARTIAL THROMBO TIME 43.8 SEC (22.5-37.2)
[2017-03-15 12:27] LABS: PROTIME (NOT ORD) 30.7 SEC (12.0-14.5)
[2017-03-15] MEDS ORDERED: PLAVIX PO (18:00)
[2017-03-15] MEDS ORDERED: COREG3 PO (18:00)
[2017-03-15] MEDS ORDERED: LIPITOR40 PO (18:00)
[2017-03-15] MEDS ORDERED: COUMADIN7.5 MG PO (18:01)
== END 2017-03-15 22:30 | disposition home or self-care (01) | DRG 252 ==
LOC: SDC/OF 12:51 → PACU 20:06 → 2SO 22:33
PROVIDERS: Internal Medicine Cardiovascular Disease; Student in an Organized Health Care Education/Training Program
PROC: 047S3DZ Dilation of Left Posterior Tibial Artery with Intraluminal Device, Percutaneous Approach (ICD-10-PCS; 2017-03-12)
PROC: B41G1ZZ Fluoroscopy of Left Lower Extremity Arteries using Low Osmolar Contrast (ICD-10-PCS; principal; 2017-03-12 15:45)
PROC: 04CL0ZZ Extirpation of Matter from Left Femoral Artery, Open Approach (ICD-10-PCS; 2017-03-12 15:45)
PROC: 047L3D6 (ICD-10-PCS; 2017-03-12 15:45)
PROC: 04CN0ZZ Extirpation of Matter from Left Popliteal Artery, Open Approach (ICD-10-PCS; 2017-03-12 15:45)
DX: I70.229 Atherosclerosis of native arteries of extremities with rest pain, unspecified extremity (principal); I21.4 Non-ST elevation (NSTEMI) myocardial infarction; E11.9 Type 2 diabetes mellitus without complications; I25.810 Atherosclerosis of coronary artery bypass graft(s) without angina pectoris; I25.10 Atherosclerotic heart disease of native coronary artery without angina pectoris; G89.4 Chronic pain syndrome; I45.10 Unspecified right bundle-branch block; I10 Essential (primary) hypertension; R00.0 Tachycardia, unspecified; E78.5 Hyperlipidemia, unspecified; I25.5 Ischemic cardiomyopathy; E78.01 Familial hypercholesterolemia; G43.909 Migraine, unspecified, not intractable, without status migrainosus; Z95.1 Presence of aortocoronary bypass graft; Z82.49 Family history of ischemic heart disease and other diseases of the circulatory system; Z95.5 Presence of coronary angioplasty implant and graft; Z88.5 Allergy status to narcotic agent; Z88.6 Allergy status to analgesic agent; Z86.73 Personal history of transient ischemic attack (TIA), and cerebral infarction without residual deficits
CPT/HCPCS: 35875; 37230; 71010; 75710; 80048; 80061; 81001; 82550; 82553; 82962; 84484; 85025; 85610; 85730; 93005; 97116-GP; 97162-GP; A9270-GY; C1725; C1757; C1769; C1874; C1894; G8978-CK-GP; G8979-CJ-GP; J0690; J2250; J2270; J2405; J2550; J2710; J3010; J3370; Q9966